=== PATIENT | male | born 1985 | race Caucasian/White ===

== ENCOUNTER → 2017-11-18 | Outpatient (CLI) | payer BC ==
--- NOTE | 2017-11-18 13:14 | MRI ---
MRI BRAIN WITHOUT AND WITH CONTRAST CLINICAL HISTORY: 32-year-old male with migraine headache since April 2017. COMPARISON: None. TECHNIQUE: Multiplanar, multisequence MR images of the brain were obtained prior to and following th e uneventful intravenous administration of 20 mL Omniscan. FINDINGS: There is no evidence of diffusion restriction. The craniocervical junction is normal. Pituitary and o ptic nerve complex are normal. Normal signal characteristics and morphology are demonstrated within t he cerebral cortex, subcortical white matter, corpus callosum, deep vazquez nuclei, brainstem and cerebe llum. The major vascular flow voids, to include the dural venous sinuses, are intact. No abnormal shauna ceptibility on gradient imaging. The ventricular system is normal in size and morphology. The basilar cisterns are normal. There is no evidence of abnormal intracranial enhancement. The orbits and globes are within normal limits. Trace mucosal thickening within the left maxillary si nus with the remaining paranasal sinuses, mastoid air cells and tympanic cavities clear. IMPRESSION: Normal MRI of the brain. Reported By:
--- NOTE | 2017-11-18 14:16 | CT ---
CT ANGIOGRAPHY OF THE HEAD CLINICAL HISTORY: 32-year-old male with intractable migraine. COMPARISON: None. TECHNIQUE: Multiple axial CT images were obtained from the skull base to the cranial vertex followin g the uneventful administration of 100 mL Omnipaque 350. MIP reformats submitted. 3D reformatted imag es of the [place] were obtained at an independent workstation. FINDINGS: Noncontrast images demonstrate no evidence of abnormal intra- or extra axial fluid collections, midli ne shift, or mass effect. Murphy white differentiation is maintained. The ventricular system is normal in size and morphology. The basal cisterns are normal in appearance. Post contrast images demonstrate significant venous contamination with no evidence of abnormal intrac ranial enhancement. The vertebral arteries are codominant. The basilar artery gives off normal superi or cerebellar and left posterior cerebral arteries. Small caliber right P1 segment with a large calib er right posterior communicating artery predominantly supplying the P2 segment. Small caliber left po sterior communicating artery. The internal carotid arteries are normal from their distal cervical seg ments to the carotid terminus. The middle cerebral arteries and anterior cerebral arteries are normal . There is a small caliber anterior communicating artery. There is normal opacification of the major dural venous sinuses. IMPRESSION: No dissection, major branch occlusion, high-grade stenosis, aneurysm, or vascular malformation. Reported By:
== END ==
LOC: RAD 10:17
PROVIDERS: ATTEND Psychiatry & Neurology Neurology
DX: G43.011 Migraine without aura, intractable, with status migrainosus (principal); Z87.820 Personal history of traumatic brain injury
CPT/HCPCS: 70496; 70553; A4222